=== PATIENT | male | born 1965 | race African-American/Black ===

== ENCOUNTER 2016-12-09 03:50 | Emergency (ER) | payer MEDICAID, OTHER ==
--- NOTE | 2016-12-09 04:06 | EDPHY ---
H & P HPI/ROS: HPI The patient presents brought in by ambulance for chest pain which began 45 minutes prior to arrival. Apparently, [facility] this [facility] for masturbating. He said while walking in the street in the cold, he developed chest pain which is diffuse, sharp, does not radiate and has been constant since it began. It is not associated with any nausea, vomiting, diaphoresis or dizziness. He says he has had about 4 5 episodes of this pain before with a normal evaluation. He does have GERD any wonders if this is the cause of his symptoms. He reports increased stress lately as his family has relocated to [place] and he would like to move there. He has relapsed on his cocaine use and last use yesterday. He has not been taking his antihypertensive because he ran out of them. REVIEW OF SYSTEMS Constitutional: No fever, no chills. Eyes: No discharge. ENT: No sore throat. Cardiovascular: See HPI Respiratory: No cough, no shortness of breath. Gastrointestinal: No abdominal pain, no vomiting. Genitourinary: No hematuria. Musculoskeletal: No back pain. Skin: No rashes. Neurological: No headache. PMHx: Hypertension, GERD Soc Hx: Homeless, positive cocaine use PHYSICAL General Appearance: Alert, no distress Eyes: Pupils equal and round no pallor or injection ENT, Mouth: Mucous membranes moist Respiratory: There are no retractions, lungs are clear to auscultation Cardiovascular: Regular rate and rhythm Gastrointestinal: Abdomen is soft and non-tender, no masses, bowel sounds normal Neurological: A&O, moves all extremities Skin: Warm and dry, no rashes Musculoskeletal: Neck is supple non tender Extremities: symmetrical, full range of motion Psychiatric: Patient is oriented X 3, there is no agitation Source: Patient, EMS Constitutional: Initial Vital Signs Temperature (C) 37.1 C 12/09/16 04:09 Heart Rate 73 12/09/16 04:09 Respiratory Rate 16 12/09/16 04:09 Blood Pressure 172/96 H 12/09/16 04:09 O2 Sat (%) 94 12/09/16 04:09 O2 Delivery Mode Room Air Allergies/Adverse Reactions: No Known Allergies Allergy (Unverified 12/09/16 04:08) Home Medications: Medication Instructions Recorded Benadryl 12/09/16 Haldol 0.5 MG (*) 12/09/16 Medical Decision Making - Diagnostics EKG Interpretation: EKG: Complete interpretation has been separately recorded in the [facility] archive. Summary impression: Normal sinus rhythm Imaging: Chest x-ray two view shows no cardiomegaly, no infiltrate, interpreted by me, radiology interpretation is pending. Differential Diagnosis: This is a 51-year-old man with history of hypertension and GERD who presents with 45 minutes of chest pain which occurred while walking outside after being [facility] out of the [facility]. He now has mild pain and denies any other complaints. Differential diagnosis includes GERD, musculoskeletal pain, anxiety, possibly ACS, penitentiary seeking. The patient was observed in the emergency room with no events on telemetry. Labs and studies were all unremarkable. His chest pain resolved spontaneously. He will be discharged from the emergency room and he is happy with this plan. - Data Points Laboratory Results: Laboratory Results 12/09/16 04:00 12/09/16 04:00 Departure - Departure Disposition: Home, Routine, Self-Care Clinical Impression: Chest pain, HTN (hypertension) Condition: Good Instructions: Chest Pain (ED) Additional Instructions: Please follow-up with [facility] in the next 1-2 days. You should return to the emergency room if your worse in any way. Please avoid using cocaine as this may be causing your pain. Referrals: [facility] [Outside] - As per Instructions
[2016-12-09 04:13] VITALS: RESP 16; TEMP 98.8
[2016-12-09 04:19] LABS: % IMMATURE GRANULYOCYTES 0.1 % (0.0-1.1); ABSOLUTE IMMATURE GRANULOCYTES 0.01 10^3/uL (0.00-0.10); ADD DIFF? NO; ADD MORPH? NO; ADD SCAN? NO; ATYPICAL LYMPHOCYTE FLAG 0 (0-99); FRAGMENT RBC FLAG 0 (0-99); HEMATOCRIT 48.4 % (40.0-51.0); HEMOGLOBIN 16.4 g/dL (13.7-17.5); LEFT SHIFT FLG 0 (0-99); LIPEMIA HEMOLYSIS FLAG 90 (0-99); MEAN CELL HEMOGLOBIN 31.1 pg (27.9-34.1); MEAN CELL HEMOGLOBIN CONCENTR. 33.9 g/dL (32.4-36.7); MEAN CELL VOLUME 91.7 fL (81.5-99.8); MEAN PLATELET VOLUME 10.4 fL (8.7-11.7); PLATELET CLUMPS FLAG 10 (0-99); PLATELET COUNT 265 10^3/uL (150-400); RED BLOOD CELL COUNT 5.28 10^6/uL (4.40-6.38); RED CELL DISTRIBUTION WIDTH 12.2 % (11.5-15.2)
[2016-12-09 04:31] LABS: ANION GAP 13 mEq/L (8-16); CALCIUM 10.1 mg/dL (8.5-10.4); CARBON DIOXIDE 28 mEq/l (22-31); CHLORIDE 103 mEq/L (97-110); CREATININE 0.9 mg/dL (0.7-1.3); GLOMERULAR FILTRATION RATE > 60; GLUCOSE 77 mg/dL (70-100); SODIUM 144 mEq/L (134-144)
[2016-12-09 04:43] LABS: TROPONIN I 0.012 ng/mL (0-0.034)
--- NOTE | 2016-12-09 04:46 | CPEKG ---
Heart Rate: 71 RR Interval: 845 P-R Interval: 148 QRSD Interval: 98 QT Interval: 408 QTC Interval: 444 P Ferris: 60 QRS Ferris: 45 T Wave Ferris: 42 EKG Severity - NORMAL ECG - EKG Impression: SINUS RHYTHM Electronically Signed By: Will Sosa 10-Dec-2016 12:28:18
[2016-12-09 05:51] VITALS: BP 169/95; PULSE 74; O2SAT 96
== END 2016-12-09 05:51 | disposition home or self-care (01) ==
DX: R07.9 Chest pain, unspecified (principal); I10 Essential (primary) hypertension